=== PATIENT | female | born 1965 | race Caucasian/White ===

== ENCOUNTER 2016-12-03 01:04 | Inpatient (IN) | payer OTHER ==
[~2016-12-03] VITALS: Ht 160 cm; Wt 70.8 kg
[~2016-12-03 01:04] MED LIST: ALPRAZOLAM1 M2 PO; BREO ELLIPTA 11 EACH PO; CLARITIN-D 241 EACH PO; DAILY MULTIPLE1 EACH PO; LISINOPRIL10 M1 PO; PEPCID20 M1 PO; PROAIR HFA8.5 GM INH
--- NOTE | 2016-12-03 10:35 | RADIOLOGY REPORT ---
EXAMINATION: XR LUMBAR SPINE CLINICAL INFORMATION: L5-S1 fusion in OR. COMPARISON: Lumbar spine films dated 09/23/2016. TECHNIQUE: Single lateral view of the lumbar spine labeled image 1 was obtained 12/03/2016, 8:14 AM. Additional lateral view of the lumbar spine labeled image 2 was obtained 12/03/2016, 8:42 AM. FINDINGS: Again seen is grade 1 anterolistheses of L5 on S1 with associated moderate degenerative disc disease. Bilateral pars defects at L5 are noted. Enteric tube is seen projected over the upper abdomen. Several darius are seen in the upper abdomen. On film #1, a surgical instrument is seen projecting over the posterior superior margin of the L5 spinous process. On film #2, a surgical instrument is seen projecting over the L5-S1 facet joint. IMPRESSION: Localization of the L5 and L5-S1 levels.
--- NOTE | 2016-12-03 12:15 | Operative Report ---
Operative/Inv Procedure Report Surgery Date: 12/03/16 Name of Procedure: L5- S1 laminectomy bilateral osteotomies, L5-S1 TLIF. Insertion of L5-S1 11 mm tritanium cage. L5-S1 posterolateral arthrodesis with autologous bone graft. Right iliac crest graft aspirate .L5-S1 posterior instrumentation utilizing maria esther titanium. Stereotactic. Pre-Operative Diagnosis: L5-S1 degenerative disease L5-S1 spondylolisthesis. Post-Operative Diagnosis: Same Estimated Blood Loss: 300cc Surgeon/Visual Educator: LINH JONES MD AND MEGHA ROGERS MD Anesthesia: general endotracheal tube Operative/Procedure Note Note: Patient was brought to the operating room and underwent endotracheal intubation for catheterizations and Venodyne's were placed for both lower extremities. The procedure was performed under elective physiological monitoring with the identification technician to room throughout the case. X-ray was used for localization. The patient was placed in a prone position back was kept flat all bony prominences well-padded. The neck was washed with alcohol and Betadine reprepped again with DuraPrep solution and draped in usual sterile fashion. An incision was made between the L5 and S1 vertebral developed down through the underlying subcutaneous teeniest tissues the paraspinal muscles were mobilized out laterally to the level of the transverse process. X-ray was used for confirmation. A pars defect was clearly seen at this point were working with a Minekey's bone scalpel the bone was removed posteriorly. The whole lamina was now delivered and released of all its attachments bilaterally. Furthermore osteotomies were performed bilaterally opening up both foramina completely by removing the facet joints. At this point the disc space was entered with 11 blade and was removed combination of straight and curved rongeurs and straight and curved curettes. The cartilaginous symptoms removed and the bony endplates were now partially decorticated. . The bone that had been removed the patient's spine was now morcellized and use in the arthrodesis furthermore working through a separate skin incision iliac crest graft was aspirate was obtained and mixed with V toss. At this point the disc space at L5-S1 was packed with autologous bone graft and V toss. A tRitanium cage was centrally filled with autologous bone graft and tapped toward the midline at the L5-S1 level. The cage was 11 mm in height by 26 mm in length. At this point copious amounts of irrigation the transverse processes and the ala of the ilium were decorticated. Morselized bone graft together with V toss were now packed posterolaterally over the decorticated surfaces. After obtaining stereotactic coordinates the pedicle screws were accessed utilizing Nekted titanium instrumentation. 3 mm x 6.5 screws were placed at S1 and 45 mm x 6.5 were placed at L4-5 on the left and 40 x 6.5 or placed on the right at L5. The screws were stimulated and found to stimulate well above 20 mA. At this point the polyaxial screws were connected to 2 rods and secured under compression. Copious amounts of either irrigation were used vancomycin powder was placed in the wound. A drain was then removed's superiorly and secured to the skin. The spinal muscles and fascia were reapproximated using interrupted 0 Vicryls inverted 2-0 Vicryl subcutaneous teeniest tissues and darius for the skin.
--- NOTE | 2016-12-03 12:17 | Operative Report ---
Operative/Inv Procedure Report Surgery Date: 12/03/16 Name of Procedure: 1. L5-S1 Marrufo decompression 2. Bilateral L5-S1 total facetectomies 3. L5-S1 transforaminal lumbar interbody fusion with titanium interbody cage, autograft, V toss 4. Nonsegmental L5-S1 posterior lateral arthrodesis using Wauseon Claudette 3 pedicle screws and rods, autograft, allograft 5. O arm neuro navigation 6. Right iliac crest bone marrow aspirate for V toss Pre-Operative Diagnosis: Isthmic L5-S1 spondylolisthesis with stenosis Post-Operative Diagnosis: Same Estimated Blood Loss: 250cc Surgeon/Welding Specialist: SUE HARRY,Rosas Ryder M.D. Anesthesia: general endotracheal tube Monitors: Neurophysiologic monitoring IV Fluids: 1.5 L crystalloid +105 mL Cell Saver Implants: Wauseon titanium interbody cage, claudette 3 pedicle screws and rods Urine Output: 325 mL via Cardona Drains: Medium SUZI Specimens: L5-S1 disc material Complications: None Condition: Stable Operative Indication: Patient is a 51-year-old woman with a work-related low back injury. She is noted to have a isthmic L5-S1 spondylolisthesis with foraminal stenosis. She has intractable back and bilateral leg pain which is not responded to compress of conservative care. Following nonoperative treatment, she now presents for surgical decompression and instrumented stabilization. Risks benefits and alternatives were explained to the patient detail and she elected to proceed. A written operative consent was obtained. Operative/Procedure Note Note: Patient was taken the operating room. Appropriate patient identification and surgical timeout, patient underwent the smooth induction of general endotracheal anesthesia without incident. Following intubation, monitoring was placed and baseline recordings obtained. A Cardona catheter was sterilely inserted. DVT prophylaxis was utilized throughout the case. Patient was given 1 g of IV vancomycin preoperative prophylaxis. With all tubes and lines secured the patient was carefully turned to the prone position on the Fawad table taking care to ensure that all pressure points were well-padded. The region low back was widely prepped and draped usual sterile fashion using povidone iodine solution. A vertical midline skin incision was marked and infiltrated local anesthetic. A small gauge spinal needle was placed superficially and a localizing x-ray was obtained. A skin incision was made with a 10 blade knife. Dissection was carried down through subcutaneous tissue with the Bovie to the lumbodorsal fascia. The fascia was incised in midline and a subperiosteal dissection lumbar paraspinal muscles was performed bilaterally with the Bovie exposing the underlying spinous processes and lamina of L5 and severe sacrum. The wide pars defect could be appreciated L5 bilaterally. A Frederick 4 was placed under the presumed L5 lamina and intraoperative x-ray was obtained and confirmed the correct level of L5-S1. Transverse processes and the sacral alar were cleared of overlying soft tissue and decorticated with a high-speed drill. We then proceeded to perform a Marrufo decompression using combination of the Aesculap bone scalpel and Kerrison on rongeurs removing the entire a spinous processes lamina and pars a complex of L5. Facetectomies of L5-S1 were completed bilaterally with the bone scalpel and Kerrisons and the pedicles were skeletonized on both sides at L5 and S1. Wide decompression of the exiting L5 and traversing S1 root was accomplished. Once the bony decompression was completed, we then focused our attention to the interbody work. At this working from the patient's right side, the thecal sac was gently mobilized the midline exposing the underlying disc of L5-S1. The overlying annulus and venous epidural tissue a coagulated and divided. The annulotomy was made with an 11 blade knife. Externally collapse and sequentially dilated first using a image archivist followed by sequential dilating and the disc space scrapers and rasps until all the cartilaginous material was removed. The endplates were further curetted to ensure they were properly prepared for arthrodesis. After appropriate trials, a 9 x 28 x 11 x 6 lordotic titanium cage was selected. Autograft from the decompression was packed into the anterior disc space followed by small pledget of V toss mixed with iliac crest bone marrow aspirate which was taken separately through a sterile Jamshidi needle at the right hip. At the cage was then gently compacted into the disc space under direct observation and countersunk. Its position visually confirmed. We then moved to the posterior lateral arthrodesis. Morcellated autograft plus the V toss with the iliac crest bone marrow aspirate was packed over the transverse processes of L5 to the sacral alar bilaterally. O arm was then brought into play. The reference arc was fixed to the right posterior iliac crest. AP lateral library technology instructor x-rays followed by a spin of the arm was obtained with reconstructions confirmed. Using the O arm navigation we selected entry points for pedicle screws at L5 and S1 bilaterally. Pedicle screws were placed at the junction of the pars transverse process and facet. Holes were made by piercing the bone with the drill, traversing the pedicle with a gearshift under O arm navigation and then using a tamp followed the placement of the screws. The holes were sounded before screw placement with a ball-tipped probe to ensure no cortical breakthrough. Once all screws were in position, we brought the O arm back into play and got a second spin. This confirmed the screw positions with the L5 screw was somewhat lateral. The interbody cages also noted to be slightly too far anterior. We therefore retracted the cage approximately 2-3 mm for better fit in the interbody space. The left L5 screw was likewise replaced with a slightly more medial trajectory and excellent purchase. All screws were in position they were stimulated with thresholds greater than 30 mA at all 4 locations. Titanium rods were then top loaded and locking caps placed bilaterally. Screws were finally tightened with an antitorque device. The wound was copiously irrigated with bacitracin sterile saline irrigation. Excellent hemostasis is achieved using combination of the bipolar and small pledget of thrombin-soaked Gelfoam. The midline dural sac was widely decompressed. The exiting and traversing roots of L5 and S1 likewise were fully decompressed bilaterally. Then began wound closure. Medium SUZI drain was placed into the wound and secured to the skin with a 2-0 nylon suture. 1 g of IV vancomycin powder was placed over the cut muscle and soft tissue surfaces. The wound was then closed in layers with interrupted 0 Vicryl suture in the deep muscle and fascia. The subcutaneous tissue was closed in layers with interrupted 2-0 Vicryl suture and the skin was closed with darius. The wounds clean and dried. Bacitracin and a sterile occlusive dressing was placed. Cement the right hip was removed. The wound was irrigated a closed with interrupted Vicryl suture in the dermis and darius in the skin. A sterile consent dressing likewise was placed. The patient was then carefully returned to the supine position, awakened exiting taken to PACU in stable condition. She was noted to be moving all 4 extremities at the completion of the case. All sponge, needle, and injuring counts are correct at the completion of seizure 3. Neurophysiologic monitoring was stable throughout the case.
--- NOTE | 2016-12-03 12:23 | PN- Neurosurgical ---
Subjective Subjective: Pt doing well. Reports sore throat, min neck pain Review of Systems: neg Objective Vital Signs and I&Os AF, VSS Physical Exam: AF, VSS SUZI with 25cc out since OR awake and alert incision is c, d, i flat voice clear, ana paula po neuro intact bilat UE, LE voiding on own ambulating Current Medications: Current Medications Sig/Ksenia Start time Last Medication Dose Route Stop Time Status Admin Vancomycin HCl 1,000 MG ONCE 12/03 0000 NR Dextrose/Water 250 ML IV 12/03 2989 Assessment/Plan Assessment/Plan Pt POD1 s/p C5/6, C6/7 ACDF and stable. Ok for dc home later today if drain is ready to dc. dc drain if less than 20cc next shift dc instructions given soft mechanical diet fu 2 weeks collar at all times, ok for soft collar at night and prn Core Measures/Miscellaneous Venous Thromboembolism VTE Risk Factors: Age > 40 VTE Contraindications: No Contraindications VTE Diagnosis: Yes (postop) Beta Tahri Is Beta Tahir a Home Med? No Antibiotics Is Patient on Antibiotics? Yes Attending MD Review Statement Attending Statement Attending MD Statement: examined this patient, discuss w/resident/PA/YARN TEXTURE MACHINE OPERATOR, discussed w/nursing
[2016-12-03 15:47] VITALS: BP 130/70
--- NOTE | 2016-12-03 16:23 | PN- Neurosurgical ---
Subjective Subjective: Post Op Note s/p L5 laminectomy with L5-S1 TLIF and ICBG Patient has pain at surgical site which is controlled with Dilaudid REGULATORY AFFAIRS MANAGER. Denies numbness, tingling, pain in lower extremities. No n/v. No further c/o. Denies CP/SOB Objective Vital Signs and I&Os Vital Signs Date Time Temp Pulse Resp B/P Pulse O2 O2 Flow FiO2 Ox Delivery Rate 12/03 1547 97.9 68 18 130/70 100 Nasal 3.0L Cannula Physical Exam: Gen: NAD, comfortably, A&Ox3 Chest: NRD, breathing comfortably on RA. RRR. Back: Dressing with small amount of blood spotting at midline, otherwise, C/D/I. SUZI drain x1 with sanguinous drainage. Ext: No calve swelling/TTP. ALPS in place. N/V intact BLE. Current Medications: Current Medications Sig/Ksenia Start time Last Medication Dose Route Stop Time Status Admin Acetaminophen 650 MG Q4P PRN 12/03 1615 AC PO Acetaminophen 1,000 MG .STK-MED ONE 12/03 0653 DC IV 12/03 0654 Bisacodyl 10 MG DAILY NEEDED PRN 12/03 1630 AC OH Diazepam 5 MG Q8P PRN 12/03 1630 AC PO Docusate Sodium 100 MG TID 12/03 1600 AC PO Famotidine 20 MG BID 12/03 2200 AC PO Fentanyl Citrate 250 MCG .STK-MED ONE 12/03 0652 DC IM 12/03 0653 Heparin Sodium 5,000 UNIT Q8 12/04 0600 AC (Porcine) SC Hydromorphone HCl 50 MG Q24H PRN 12/03 1245 AC Sodium Chloride 45 ML IV Hydromorphone HCl 2 MG .STK-MED ONE 12/03 0652 DC IM 12/03 0653 Ketorolac 30 MG Q6P PRN 12/03 1615 AC Tromethamine IV 12/08 1614 Midazolam HCl 2 MG .STK-MED ONE 12/03 0653 DC IM 12/03 0654 Ondansetron HCl 4 MG Q6P PRN 12/03 1630 AC IV Oxycodone/ 1 TAB Q4P PRN 12/03 1615 AC Acetaminophen PO Oxycodone/ 2 TAB Q4P PRN 12/03 1615 AC Acetaminophen PO Remifentanil 5 MG .STK-MED ONE 12/03 0653 DC IV 12/03 0654 Senna 374 MG QPM PRN 12/03 2200 AC PO Sodium Chloride 1,000 ML Q12H 12/03 1600 AC IV 12/04 1559 Trimethobenzamide HCl 200 MG Q6P PRN 12/03 1630 AC IM Vancomycin HCl 1,000 MG ONCE 12/03 0000 NR Dextrose/Water 250 ML IV 12/03 2359 Assessment/Plan Assessment/Plan 51yo F POD#0 s/p s/p L5 laminectomy with L5-S1 TLIF and ICBG. AVSS, patient stable. - Pain control with Dilaudid REGULATORY AFFAIRS MANAGER - PRN valium for muscle spasm - ABX while SUZI drain in place - Continue SUZI to bulb suction - OOB with brace - I/O's - PRN zofran - ALPS - Regular diet Core Measures/Miscellaneous Venous Thromboembolism VTE Risk Factors: Age > 40 VTE Contraindications: No Contraindications VTE Diagnosis: Yes (postop) Beta Tahir Is Beta Tahir a Home Med? No Antibiotics Is Patient on Antibiotics? Yes
--- NOTE | 2016-12-03 16:39 | NUR ---
ADMISSION NOTE PT ARRIVED TO FLOOR A/O X 3 ON 3L 100%, TURNED DOWN TO 1.5 AT THIS TIME STATES PAIN TO BACK 7/10 EDUCATED ON SPIRITS MODEL PUMP. DENIES NAUSEA, TAKING IN ICE CHIPS AND WATER. NS INFUSING ORDERED. BURROWS DRAINING CLEAR YELLOW URINE. RAUL SURGICAL PA AT BEDSIDE. +CMS, ALPS IN PLACE, +PP, DRESSING TO LOWER BACK INTACT, SMALL AMT BLOODY DRAINAGE, FAMILY AT BEDSIDE. ORIENTED TO ROOM AND USE OF CALL SELBY. WILL CONT TO MONITOR.
[2016-12-03 17:32] VITALS: BP 116/70
--- NOTE | 2016-12-03 18:13 | RADIOLOGY REPORT ---
EXAMINATION: XR LUMBOSACRAL SPINE CLINICAL INFORMATION: L5-S1 fusion in the operating room with O - arm COMPARISON: Lumbar spine 12/03/2016 TECHNIQUE: O-arm imaging performed through the lumbosacral junction. Dr. Bradshaw. Time: 12.78 seconds. Dose total: DLP 1098.11 FINDINGS: 2 axial sequences were obtained. The first obtained on 11:00 AM. This shows metallic structure at the lumbosacral junction centrally. There is a orthopedic osseous probe projecting into the right iliac wing adjacent to the sacroiliac joint at the same level. The second sequence shows transpedicular screws has been placed at the lumbosacral junction. Status post laminectomy. Large posterior soft tissue surgical defect at this level. IMPRESSION: O-arm imaging post fusion lumbosacral junction
[2016-12-03 19:08] VITALS: BP 120/80
[2016-12-03 21:27] VITALS: BP 122/60
[2016-12-03 23:12] VITALS: BP 114/60
[2016-12-04] VITALS (13 sets, daily range): BP systolic 94–120; BP diastolic 46–80
--- NOTE | 2016-12-04 07:27 | PN- Neurosurgical ---
Subjective Subjective: Pt doing well. reports incisional LBP. No N/T/W LE. Objective Vital Signs and I&Os Vital Signs Date Time Temp Pulse Resp B/P Pulse O2 O2 Flow FiO2 Ox Delivery Rate 12/04 0708 97.7 63 20 106/60 98 Nasal Cannula 12/04 0452 97.8 65 20 106/60 99 Nasal Cannula 12/04 0400 97.8 65 20 106/60 /09 0252 110/60 12/04 0246 98.1 68 20 94/46 99 Nasal Cannula 12/04 0200 98.1 68 20 110/60 / 0023 98.3 63 20 100/46 98 Nasal Cannula 12/04 0000 Nasal 2.0L Cannula 12/04 0000 98.3 63 20 100/46 / 2312 98.1 69 20 114/60 99 Nasal Cannula 12/03 2127 98.9 65 20 122/60 98 Nasal Cannula 12/03 1908 98.5 75 20 120/80 94 Nasal Cannula 12/03 1732 98.5 71 20 116/70 96 Nasal Cannula 12/03 1547 97.9 68 18 130/70 100 Nasal 3.0L Cannula Intake & Output 12/04 0800 12/04 0000 / 1600 12/03 0800 12/03 0000 12/02 1600 Intake Total 1340 Output Total 1250 1370 Balance -1250 -30 Intake, IV 640 Intake, Oral 700 Output, 120 Drainage Output, Urine 1250 1250 Patient 70.76 kg Weight Physical Exam: AF, VSS SUZI with 120cc serosanguinous ON incision is c,d,i flat neuro exam of LE normal motor and sensory bilat no calf swelling or tenderness, abd soft [place] in place Current Medications: Current Medications Sig/Ksenia Start time Last Medication Dose Route Stop Time Status Admin Acetaminophen 650 MG Q4P PRN 12/03 1615 AC PO Albuterol Sulfate 2 PUF Q6P PRN 12/03 1630 AC INH Alprazolam 1 MG AT BEDTIME NEED.. 12/03 1630 AC 08 PO 12/10 1629 2309 Bisacodyl 10 MG DAILY NEEDED PRN 12/03 1630 AC NM Budesonide/ 2 PUF BID 12/04 1000 AC Formoterol Fumarate INH Diazepam 5 MG Q8P PRN 12/03 1630 AC PO Docusate Sodium 100 MG TID 12/03 1600 AC 12/03 PO 2114 Famotidine 20 MG DAILY 12/04 1000 AC 12/04 PO 0232 Famotidine 20 MG BID 12/03 2200 AC 12/03 PO 2114 Fluconazole 150 MG ONCE ONE 12/04 0715 UNVr PO 12/04 0716 Heparin Sodium 5,000 UNIT Q8 12/04 0600 AC 12/04 (Porcine) SC 0641 Hydromorphone HCl 2 MG .STK-MED ONE 12/03 1251 DC IM 12/03 1252 Hydromorphone HCl 50 MG Q24H PRN 12/03 1245 DC Sodium Chloride 45 ML IV Hydromorphone HCl 2 MG .STK-MED ONE 12/03 1201 DC IM 12/03 1202 Ketorolac 30 MG Q6P PRN 12/03 1615 AC Tromethamine IV 12/08 1614 Lisinopril 10 MG DAILY 12/04 1000 AC PO Loratadine 10 MG DAILY 12/04 1000 AC 12/03 PO 2310 Miconazole Nitrate 1 FÁTIMA AT BEDTIME 12/03 2200 DC 12/03 VAG 2312 Ondansetron HCl 4 MG Q6P PRN 12/03 1630 AC IV Oxycodone/ 1 TAB Q4P PRN 12/03 1615 AC Acetaminophen PO Oxycodone/ 2 TAB Q4P PRN 12/03 1615 AC Acetaminophen PO Ramelteon 8 MG AT BEDTIME 12/03 2200 AC PO Senna 374 MG QPM PRN 12/03 2200 AC PO Sodium Chloride 1,000 ML Q12H 12/03 1600 DC 12/03 IV 12/04 1559 1732 Trimethobenzamide HCl 200 MG Q6P PRN 12/03 1630 AC IM Vancomycin HCl 1,000 MG Q12H 12/03 2000 AC 12/03 Dextrose/Water 250 ML IV 211 Vancomycin HCl 1,000 MG ONCE 12/03 0000 DC Dextrose/Water 250 ML IV 12/03 2359 Zolpidem Tartrate 2.5 MG AT BEDTIME 12/03 2200 AC 12/03 PO 2112 Assessment/Plan Assessment/Plan Pt is POD1 s/p L5/S1 Marrufo decompression and fusion and doing well. Neurologically stable. Plan: -cont SUZI until less than 50cc per shift -cont vanco until drain out -IS to bedside, use 10x/hr -DVT prophylaxis -OOB with brace -PT eval, possible STR -dc BROADCAST OPERATIONS ENGINEER, HLIV -reg diet -dc [place], ISC prn -diflucan for vaginal yeast infection Core Measures/Miscellaneous Venous Thromboembolism VTE Risk Factors: Age > 40 VTE Contraindications: No Contraindications VTE Diagnosis: Yes (postop) Beta Tahir Is Beta Tahir a Home Med? No Antibiotics Is Patient on Antibiotics? Yes Attending MD Review Statement Attending Statement Attending MD Statement: examined this patient, discuss w/resident/PA/SPARE HAND CARDING, discussed w/nursing
[2016-12-05 07:43] VITALS: BP 116/60
--- NOTE | 2016-12-05 08:22 | PN- Neurosurgical ---
Subjective Subjective: Pt doing well. Reports mild neck pain, right thigh discomfort. Overall, pain better controlled with vicoden and valium. Objective Vital Signs and I&Os Vital Signs Date Time Temp Pulse Resp B/P Pulse O2 O2 Flow FiO2 Ox Delivery Rate 12/05 0743 99.6 84 20 116/60 95 Room Air 12/04 2233 98.9 99 20 112/60 97 12/04 1417 98.0 86 18 120/60 99 Room Air 12/04 1307 Room Air 2.0L 12/04 0913 Room Air 12/04 0824 98.5 73 20 110/80 99 Room Air 12/04 0800 98.0 86 18 110/80 Intake & Output 12/05 0000 12/04 1600 12/04 0812/04 0000 12/03 1600 Intake Total 660 312 034 8881 1340 Output Total 360 931 652 2964 1370 Balance 300 520 -230 -70 -30 Intake, IV 300 80 640 640 Intake, Oral 660 660 500 660 700 Output, 60 90 60 120 120 Drainage Output, Urine 300 811 253 7402 1250 Patient 70.76 kg Weight Physical Exam: Pt AF, VSS SUZI with 60cc overnight Neuro exam is normal bilat LE Incision c,d,i flat ambulatory, ana paula po well voiding on own, using BR independently Current Medications: Current Medications Sig/Ksenia Start time Last Medication Dose Route Stop Time Status Admin Acetaminophen 650 MG Q4P PRN 12/03 1615 AC PO Acetaminophen/ 1 TAB Q4P PRN 12/04 1615 AC Hydrocodone Bitart PO Acetaminophen/ 2 TAB Q4P PRN 12/04 1615 AC 12/05 Hydrocodone Bitart PO 0554 Albuterol Sulfate 2 PUF Q6P PRN 12/03 1630 AC INH Alprazolam 1 MG AT BEDTIME NEED.. 12/03 1630 AC 12/04 PO 12/10 1629 2204 Bisacodyl 10 MG DAILY NEEDED PRN 12/03 1630 AC ID Budesonide/ 2 PUF BID 12/04 1000 AC 12/04 Formoterol Fumarate INH 2203 Diazepam 10 MG .STK-MED ONE 12/04 1104 DC IM 12/04 1105 Diazepam 5 MG ONCE ONE 12/04 1030 DC 12/04 IV 12/04 1031 1111 Diazepam 5 MG Q8P PRN 12/03 1630 AC 12/05 PO 0020 Docusate Sodium 100 MG TID 12/03 1600 AC 12/04 PO 2203 Famotidine 20 MG DAILY 12/04 1000 DC 12/04 PO 0232 Famotidine 20 MG BID 12/03 2200 AC 12/04 PO 2203 Heparin Sodium 5,000 UNIT Q8 12/04 0600 AC 12/05 (Porcine) SC 0554 Hydromorphone HCl 1 MG ONCE ONE 12/04 1300 DC 12/04 IV 12/04 1301 1300 Ketorolac 30 MG Q6P PRN 12/03 1615 AC 12/04 Tromethamine IV 12/08 1614 0901 Lisinopril 10 MG DAILY 12/04 1000 AC 12/04 PO 0954 Loratadine 10 MG DAILY 12/04 1000 AC 12/03 PO 2310 Ondansetron HCl 4 MG Q6P PRN 12/03 1630 AC 12/04 IV 1111 Oxycodone/ 1 TAB Q4P PRN 12/03 1615 DC Acetaminophen PO Oxycodone/ 2 TAB Q4P PRN 12/03 1615 DC Acetaminophen PO Pantoprazole Sodium 40 MG DAILY 12/04 1030 AC 12/04 IV 1236 Patient Medication 1 ED .STK-MED ONE 12/04 1402 DC Teaching ED 12/04 1403 Ramelteon 8 MG AT BEDTIME 12/03 2200 AC PO Senna 374 MG QPM PRN 12/03 2200 AC 12/05 PO 0554 Trimethobenzamide HCl 200 MG Q6P PRN 12/03 1630 AC 12/04 IM 1236 Vancomycin HCl 1,000 MG Q12H 12/03 2000 AC 12/04 Dextrose/Water 250 ML IV 2004 Zolpidem Tartrate 2.5 MG AT BEDTIME 12/03 2200 AC 12/03 PO 2112 Assessment/Plan Assessment/Plan Pt stable POD2 s/p L5/S1 Marrufo decompression and fusion and doing well. Plan: -OOB -home vs STR -dc SUZI -dc antibiotic -will need fu with me 2 weeks after dc for darius -keep incision covered for showers -brace when OOB -vicoden and valium for dc (please give enough to last 10 days) Core Measures/Miscellaneous Venous Thromboembolism VTE Risk Factors: Age > 40 VTE Contraindications: No Contraindications VTE Diagnosis: Yes (postop) Beta Tahir Is Beta Tahir a Home Med? No Antibiotics Is Patient on Antibiotics? Yes Attending MD Review Statement Attending Statement Attending MD Statement: examined this patient, discuss w/resident/PA/DOCUMENT EXAMINER, discussed w/nursing
[2016-12-05 14:40] VITALS: BP 122/80
[2016-12-05] MEDS ORDERED: VICODIN 5-3001 EACH PO (14:55)
--- NOTE | 2016-12-05 15:05 | Patient Discharge Instructions ---
See Addendum Discharge Instructions General Discharge Information You were seen/treated for: LOW BACK PAIN SECONDARY TO L5-S1 SPONDYLOLISTHESIS WITH STENOSIS You had these procedures: TLIF L5-S1 Watch for these problems: INCREASING PAIN, REDNESS, SWELLING OF INCISION. DRAINAGE OF ANY TYPE FROM INCISION. WORSENING NUMBNESS OR TINGLING OF LEGS. INABILITY TO URINATE OR MOVE BOWELS. FEVER GREATER THAN 101.5 Do not soak the wound: Yes No bath, but you may shower: Yes Other wound care: KEEP WOUND CLEAN AND DRY. DAILY DRY DRESSING CHANGES. Special Instructions: WEAR BACK BRACE WHILE AWAKE AND ACTIVE Diet Continue normal diet: Yes Recommended Diet: Regular Activity Full Activity/No Limits: No Activity Self Limited: Yes Pounds, do NOT lift more than: 5 Activity Limited to: Weight bear as tolerated Additional ACTIVITY Info: NO BENDING OR TWISTING Acute Coronary Syndrome Inclusion Criteria At DC or during hospital stay patient has or had the following: ACS DIAGNOSIS No Discharge Core Measures Meds if any: Prescribed or Continued at Discharge Meds if any: NOT Prescribed or Continued at Discharge Congestive Heart Failure Inclusion Criteria At DC or during hospital stay patient has or had the following: CHF DIAGNOSIS No Discharge Core Measures Meds if any: Prescribed or Continued at Discharge Meds if any: NOT Prescribed or Continued at Discharge Cerebrovascular accident Inclusion Criteria At DC or during hospital stay patient has or had the following: CVA/TIA Diagnosis No Discharge Core Measures Meds if any: Prescribed or Continued at Discharge Meds if any: NOT Prescribed or Continued at Discharge Venous thromboembolism Inclusion Criteria VTE Diagnosis No VTE Type NONE VTE Confirmed by (Test) NONE Discharge Core Measures - Per Current guidelines, there needs to be overlap - treatment for the first 5 days of Warfarin therapy. - If discharged on Warfarin prior to 5 days of - overlap therapy, the patient will need to be - assessed for post discharge needs including - *Post discharge parental anticoagulation - *Warfarin and/or parental anticoagulation education - *Follow up date to check INR post discharge At least 5 days overlap therapy as Inpatient No Meds if any: Prescribed or Continued at Discharge Note: Overlap Therapy is Warfarin and Anticoagulant Meds if any: NOT Prescribed or Continued at Discharge
--- NOTE | 2016-12-05 15:11 | Surgical Discharge Summary ---
Visit Information Visit Dates Admission Date: 12/03/16 Discharge Date: 12-06-16 History of Present Illness Chief Complaint: LOW BACK PAIN SECONDAY TO SPONDYLOLISTHESIS L5-S1 Medical History Blood Transfusion Hx: No EENT: NONE Cardiovascular: hypertension Respiratory: NONE Gastrointestinal: GERD Hepatic: NONE Renal: NONE Musculoskeletal: disk herniation Psychiatric: NONE Endocrine: GOITER Blood Disorders: NONE Cancer(s): NONE FINAL INSPECTION SUPERVISOR/Reproductive: NONE History of MRSA: No History of VRE: No History of CDIFF: No Isolation History: Standard Influenza Vaccine: 05/29/16 Surgical History Pertinent Surgical History: BRAIN ANERYSM APPY FX WRIST- SURGERY COLECTOMY SALIVARY GLAND SURGERY Psychosocial History Where Do You Live? Home Who Do You Live With? Patient/Self What is Your Primary Language? Swiss Review of Systems: SEE H&P Hospital Course Course Attending Physician: SUE HARRY,MEGHA Wilhelm Primary Care Physician: MICHAEL LOPEZ MD Hospital Course: MAYO WAS ADMITTED TO THE HOSPITAL ON 12/03/2016 FOR TLIF L5-S1. SHE TOLERATED THE PROCEDURE WELL. SHE WAS TRANSFERRED TO A GENERAL SURGICAL FLOOR. HER DIET WAS ADVANCED AND TOLERATED. SHE VOIDED SPONTANEOUSLY. HER VITAL SIGNS WERE STABLE AND WITHIN NORMAL LIMITS. HER PAIN WAS WELL CONTROLLED. SHE WAS EVALUATED AND TREATED BY PHYSICAL THERAPY. SHE WAS DEEMED APPROPRIATE FOR DISCHARGE TO A SHORT TERM REHAB FACILITY. SHE WAS GIVEN 2 DAYS WORTH OF DECADRON FOR LATERAL RIGHT THIGH PAIN LIKELY A CUTANEOUS NERVE INJURY. Allergies: Coded Allergies: Penicillins (UNKNOWN 12/03/16) Sulfa (Sulfonamide Antibiotics) (UNKNOWN 12/03/16) aspartame (UNKNOWN 12/03/16) meperidine (UNKNOWN 12/03/16) Disposition Summary Disposition Principal Diagnosis: L5-S1 SPONDYLOLISTHESIS WITH STENOSIS Additional Diagnosis: NONE Discharge Disposition: SNF Discharge Instructions General Discharge Information Code Status: Full Code Patient's Diet: REGULAR, ADVANCE TOLERATED Patient's Activity: NO BENDING AND TWISTING, WEAR BRACE WHILE AWAKE AND ACTIVE Follow-Up Instructions/Appts: CONTACT DR. ROGERS'S OFFICE TO ARRANGE/ CONFIRM FOLLOW UP APPOINTMENT TO BE SEEN IN 2 WEEKS FROM DATE OF SURGERY. Medications at Discharge Discharge Medications: Continue taking these medications: Lisinopril (Lisinopril) 10 MG TABLET 1 Tablet ORAL Every Day Alprazolam (Alprazolam) 1 MG TABLET 1.5 Tablet ORAL NIGHTLY Loratadine/Pseudoephedrine (Claritin-D 24 Hour Tablet) 10 MG-240 MG TAB.ER.24H 1 Tablet ORAL NEEDED Famotidine (Pepcid) 20 MG TABLET 1 Tablet ORAL DAILY Fluticasone/Vilanterol (Breo Ellipta 100-25 Mcg INH) 100 MCG-25 MCG/DOSE BLST.W.DEV 1 PUFF ORAL DAILY as needed for ASTHMA Albuterol Sulfate (Proair Hfa) 90 MCG HFA.AER.AD 1 PUFF Inhale through mouth NEEDED Multivitamin (Daily Multiple Vitamin) 1 EACH TABLET 1 Tablet ORAL Every Day Start taking the following new medications: Dexamethasone (Dexamethasone) 2 MG TABLET 2 Milligram ORAL EVERY SIX HOURS Days = 2 No Refills Instructions: TO BE GIVEN FOR TOTAL OF 48 HOURS ONLY- STOP DATE IS 12/08/16 Diazepam (Valium) 10 MG TABLET 5 Milligram ORAL EVERY 8 HOURS NEEDED as needed for MUSCLE SPASMS Qty = 30 No Refills Hydrocodone/Acetaminophen (Vicodin 5-300 MG Tablet) 5 MG-300 MG TABLET 1-2 Tablet ORAL EVERY 4-6 HOURS as needed for PAIN Qty = 36 No Refills
[2016-12-05 23:45] VITALS: BP 118/68
[2016-12-06 06:48] VITALS: BP 106/60
[2016-12-06] MEDS ORDERED: PEPCID40 M1 PO (09:10)
[2016-12-06] MEDS ORDERED: PEPCID20 M1 PO (09:12)
[2016-12-06 10:27] VITALS: BP 106/60
[2016-12-06] MEDS ORDERED: VALIUM10 M1 PO (11:24)
[2016-12-06] MEDS ORDERED: DEXAMETHASONE2 M1 PO (11:24)
--- NOTE | 2016-12-06 11:49 | PN- Neurosurgical ---
Subjective Subjective: POD #3 s/p TLIF L5-S1. Resting in bed. Complains of increased right lateral thigh pain, especially with ambulation. No other complaints offered, specifically numbness or tingling to the lower extremities. No CP/SOB, N/V, F/ C. Voiding spontaneously. Had BM early this morning. Objective Vital Signs and I&Os Vital Signs Date Time Temp Pulse Resp B/P Pulse O2 O2 Flow FiO2 Ox Delivery Rate 12/06 1027 99.4 74 16 106/60 12/06 0903 74 106/60 12/06 0648 99.4 74 16 106/60 98 Room Air 12/05 2345 99.3 88 18 118/68 98 Room Air 12/05 1440 98.7 68 20 122/80 96 Intake & Output 12/06 1600 12/06 0800 12/06 0000 12/05 1600 12/05 0800 12/05 0000 Intake Total 617 495 5701 660 960 Output Total 45 360 440 Balance 735 124 4934 300 520 Intake, IV 275 300 Intake, Oral 235 860 3299 660 660 Number 1 Bowel Movements Output, 45 60 90 Drainage Output, Urine 300 350 Physical Exam: Gen: AAOx3 in NAD Cor: S1+S2+ Lungs: CTA russell Abd: soft, NT, ND, +BS x4 Back: incisional dressing changed. Incision C/D/I with darius x2. No surrounding erythema or drainage noted. Ext: no edema or calf tenderness to russell lower extremities. Current Medications: Current Medications Sig/Ksenia Start time Last Medication Dose Route Stop Time Status Admin Acetaminophen 650 MG Q4P PRN 12/03 1615 AC PO Acetaminophen/ 1 TAB Q4P PRN 12/04 1615 AC Hydrocodone Bitart PO Acetaminophen/ 2 TAB Q4P PRN 12/04 1615 AC 12/06 Hydrocodone Bitart PO 1109 Albuterol Sulfate 2 PUF Q6P PRN 12/03 1630 AC INH Alprazolam 1 MG AT BEDTIME NEED.. 12/03 1630 AC 12/05 PO 12/10 1629 2205 Bisacodyl 10 MG ONCE ONE 12/05 1530 DC 12/05 ID 12/05 1531 1941 Bisacodyl 10 MG DAILY NEEDED PRN 12/03 1630 AC ID Budesonide/ 2 PUF BID 12/04 1000 AC 12/06 Formoterol Fumarate INH 0904 Dexamethasone 2 MG Q6 12/06 0826 AC 12/06 PO 12/07 2359 1109 Diazepam 5 MG Q8P PRN 12/03 1630 AC 12/06 PO 0904 Docusate Sodium 100 MG TID 12/03 1600 AC 12/06 PO 1109 Famotidine 20 MG DAILY 12/06 1000 AC 12/06 PO 0903 Famotidine 20 MG BID 12/03 2200 DC 12/05 PO 2205 Heparin Sodium 5,000 UNIT Q8 12/04 0600 AC 12/06 (Porcine) SC 0547 Ketorolac 30 MG Q6P PRN 12/03 1615 AC 12/04 Tromethamine IV 12/08 1614 0901 Lisinopril 10 MG DAILY 12/04 1000 AC 12/06 PO 0903 Loratadine 10 MG DAILY 12/04 1000 AC 12/06 PO 0904 Ondansetron HCl 4 MG Q6P PRN 12/03 1630 AC 12/06 IV 1109 Pantoprazole Sodium 40 MG DAILY 12/04 1030 DC 12/05 IV 0959 Patient Medication 1 ED .STK-MED ONE 12/05 1418 HI Teaching ED 12/05 1419 Polyethylene Glycol 17 GM DAILY 12/05 1000 AC 12/06 PO 0904 Ramelteon 8 MG AT BEDTIME 12/03 2200 AC 12/05 PO 2205 Senna 374 MG QPM PRN 12/03 2200 AC 12/05 PO 0554 Trimethobenzamide HCl 200 MG Q6P PRN / 1630 AC 12/04 IM 1236 Vancomycin HCl 1,000 MG Q12H 12/03 2000 DC 12/05 Dextrose/Water 250 ML IV 1942 Zolpidem Tartrate 2.5 MG AT BEDTIME 12/03 2200 AC 12/03 PO 2112 Assessment/Plan Assessment/Plan A: POD #3 s/p TLIF L5-S1; AVSS. Plan: D/C to STR today. Discussed lateral right thigh pain with Dr. Bradshaw. Will give Decadron 2mg PO q6 x 48 hours for likely lateral cutaneous nerve injury during operation. Pepcid 40 mg PO BID x 5 days then revert to 20 mg BID. Core Measures/Miscellaneous Venous Thromboembolism VTE Risk Factors: Age > 40 VTE Contraindications: No Contraindications VTE Diagnosis: Yes (postop) Beta Tahir Is Beta Tahir a Home Med? No Antibiotics Is Patient on Antibiotics? Yes
== END 2016-12-06 11:47 | DRG 460 ==
LOC: ENRESERVDT → ENRESERVTM → ENPENDDIS 01:04 → SDA 01:04 → 2NA 15:12
PROVIDERS: ADMIT Neurological Surgery
PROC: 0SG3071 Fusion of Lumbosacral Joint with Autologous Tissue Substitute, Posterior Approach, Posterior Column, Open Approach (ICD-10-PCS; principal; 2016-12-03)
PROC: 0SG30AJ Fusion of Lumbosacral Joint with Interbody Fusion Device, Posterior Approach, Anterior Column, Open Approach (ICD-10-PCS; principal; 2016-12-03)
PROC: 07DR3ZZ Extraction of Iliac Bone Marrow, Percutaneous Approach (ICD-10-PCS; principal; 2016-12-03)
PROC: 4A11X4G Monitoring of Peripheral Nervous Electrical Activity, Intraoperative, External Approach (ICD-10-PCS; principal; 2016-12-03)
DX: M43.17 Spondylolisthesis, lumbosacral region (principal); I10 Essential (primary) hypertension; M51.37 Other intervertebral disc degeneration, lumbosacral region; M48.07 Spinal stenosis, lumbosacral region; K21.9 Gastro-esophageal reflux disease without esophagitis; G47.33 Obstructive sleep apnea (adult) (pediatric); E04.9 Nontoxic goiter, unspecified
CPT/HCPCS: 2NAP; 72020; 72110; 87086; 88304; 97116-GO; 97162-GP; 97530-GO; J0131; J1170; J1644; J1885; J2405; J3250; J3370; J3490; J7060; Q4118